=== PATIENT | female | born 1975 | race Caucasian/White ===

== ENCOUNTER 2019-03-27 08:17 | Outpatient (CLI) | payer OTHER ==
--- NOTE | 2019-03-27 10:27 | CT ---
Exam: ABDOMEN AND PELVIC CT SCAN WITH AND WITHOUT CONTRAST: HISTORY: Urinary tract infection, mixed incontinence. TECHNIQUE/FINDINGS: This exam was performed initially as a CT cystogram followed by a CT urogram. Gaines catheter was placed and the catheter was incompletely clamped and there is some contrast media within the bladder on the initial flat locker noncontrast images. There is some extension of contrast posteriorly from the bladder into the vagina, evidence for bladde r-vaginal fistula. There is no evidence for ureteral reflux. Following the cystogram images, iodinated contrast media was injected and multiphase postcontrast rayna ges are performed. No evidence for renal calculi or acute obstruction. No evidence for solid or cystic renal mass. Th ere are postoperative changes of the stomach. Small fat-containing umbilical hernia. IMPRESSION: Evidence for a bladder-vaginal fistula. No evidence for renal calculus or acute obstruction. No ev idence for ureteral reflux. No evidence for solid or cystic renal mass. Transcribed Date/Time: 03/27/2019 11:22 AM
[2019-03-27] MEDS ORDERED: Iopamidol 370 76% 50 ML VIAL FS ONE (14:35)
[2019-03-27] MEDS ORDERED: Iopamidol 370 76% 100 ML VIAL ONE (14:35)
== END 2019-03-27 08:18 | disposition home or self-care (01) ==
LOC: CT 08:17
PROVIDERS: ATTEND Urology
DX: N39.0 Urinary tract infection, site not specified (principal); N39.46 Mixed incontinence
CPT/HCPCS: 74178

== ENCOUNTER 2023-07-20 17:00 | Outpatient (CLI) | payer OTHER | END 2023-07-20 17:01 | disposition home or self-care (01) | LOC: SLEEPLAB 17:00 | PROVIDERS: ATTEND Nurse Practitioner Family | DX: G47.33 Obstructive sleep apnea (adult) (pediatric) (principal); R53.83 Other fatigue; F32.A Depression, unspecified; F41.9 Anxiety disorder, unspecified; E66.9 Obesity, unspecified; Z68.41 Body mass index [BMI] 40.0-44.9, adult; R06.83 Snoring | CPT/HCPCS: 95810 ==